=== PATIENT | female | born 1975 | race Caucasian/White ===

== ENCOUNTER 2016-11-07 22:07 | Emergency (ER) | payer MEDICAID ==
[~2016-11-07] VITALS: Ht 160 cm; Wt 140.0 kg
[~2016-11-07 22:07] MED LIST: 1-ME1LIQ PO; COUM5TAB PO; FAMO20TA2 PO; JOBSMIS; LEVE750T8 PO; SIMV20 PO
[2016-11-07 22:14] VITALS: BP 176/109; PULSE 82; RESP 16; TEMP 98.3; O2SAT 97
[2016-11-07] MEDS ORDERED: FERR325T8 PO (22:28)
[2016-11-07] MEDS ORDERED: WARF-23 PO (22:28)
[2016-11-07] MEDS ORDERED: POTA-243 PO (22:28)
[2016-11-07] MEDS ORDERED: SIMV20TA PO (22:28)
[2016-11-07] MEDS ORDERED: KEPP750T PO (22:28)
[2016-11-07] MEDS ORDERED: ACETAMINOPHEN 325 MG TAB PO ONE (22:30)
--- NOTE | 2016-11-07 23:13 | RADRPT ---
EXAM DATE/TIME: 11/07/2016 22:41 [facility] COMPARISON: No previous studies available for comparison. INDICATIONS : Trauma. Pain due to fall. MEDICAL HISTORY : None. SURGICAL HISTORY : None. ENCOUNTER: Initial ACUITY: 1 day PAIN SCORE: 4/10 LOCATION: Left anterior knee FINDINGS: Four view examination of the left knee demonstrates no evidence of fracture or dislocation. Degenerat preet osteoarthritic changes are most prominent in the medial tibiofemoral joint space with loss of hei ght and marginal spurring. Moderate size suprapatellar effusion. CONCLUSION: 1. Degenerative osteoarthritic changes most prominent in the medial tibiofemoral joint space without fracture. 2. Moderate size suprapatellar effusion. Max Mahajan MD on November 07, 2016 at 23:09 Board Certified Radiologist. This report was verified electronically.
--- NOTE | 2016-11-07 23:15 | RADRPT ---
EXAM DATE/TIME: 11/07/2016 22:50 [facility] COMPARISON: No previous studies available for comparison. INDICATIONS : Trauma. Pain due to fall. MEDICAL HISTORY : None. SURGICAL HISTORY : None. ENCOUNTER: Initial ACUITY: 1 day PAIN SCORE: 8/10 LOCATION: Left upper extremity wrist, medial. FINDINGS: Three view examination of the left wrist demonstrates no soft tissue swelling, dislocation, or fractu re. The carpal bones are in normal alignment. Apparent osseous cyst in the ulnar base of the lunate . The joint spaces are maintained. Bony mineralization is normal. CONCLUSION: 1. Osseous cyst in the lunate. 2. No fracture. Max Mahajan MD on November 07, 2016 at 23:12 Board Certified Radiologist. This report was verified electronically.
--- NOTE | 2016-11-07 23:18 | RADRPT ---
EXAM DATE/TIME: 11/07/2016 22:58 [facility] COMPARISON: No previous studies available for comparison. INDICATIONS : Trauma, fall. RADIATION DOSE: 51.25 CTDIvol (mGy) ; Tabletop CT Head MEDICAL HISTORY : Seizures. Hypertension. CVA. SURGICAL HISTORY : Cholecystectomy. Tonsillectomy. ENCOUNTER: Initial ACUITY: 1 day PAIN SCALE: 2/10 LOCATION: cranial TECHNIQUE: Multiple contiguous axial images were obtained of the head. Using automated exposure control and adj ustment of the mA and/or kV according to patient size, radiation dose was kept as low as reasonably a chievable to obtain optimal diagnostic quality images. DICOM format image data is available electro nically for review and comparison. FINDINGS: CEREBRUM: The ventricles are normal for age. Chronic encephalomalacia changes are seen in the left temporal oc cipital watershed area as well as the posterior high right parietal convexity. No evidence of midline shift, mass lesion, hemorrhage or acute infarction. No extra-axial fluid collections are seen. POSTERIOR FOSSA: The cerebellum and brainstem are intact. The 4th ventricle is midline. The cerebellopontine angle i s unremarkable. EXTRACRANIAL: The visualized portion of the orbits is intact. SKULL: The calvaria is intact. No evidence of skull fracture. CONCLUSION: 1. Chronic changes with encephalomalacia in the left temporal occipital watershed area and high right posterior parietal convexity. 2. Nothing acute. No fracture. Max Mahajan MD on November 07, 2016 at 23:14 Board Certified Radiologist. This report was verified electronically.
--- NOTE | 2016-11-07 23:42 | RADRPT ---
EXAM DATE/TIME: 11/07/2016 23:01 [facility] COMPARISON: No previous studies available for comparison. INDICATIONS : Trauma, fall. RADIATION DOSE: 37.81 CTDIvol (mGy) ; Patient body habitus MEDICAL HISTORY : Hypertension. Seizures. CVA. SURGICAL HISTORY : Tonsillectomy. Cholecystectomy. ENCOUNTER: Initial ACUITY: 1 day PAIN SCALE: 6/10 LOCATION: lower back TECHNIQUE: Volumetric scanning of the lumbar spine was performed. Multiplanar reconstructions in the sagittal, coronal and oblique axial planes were performed. Using automated exposure control and adjustment of the mA and/or kV according to patient size, radiation dose was kept as low as reasonably achievable t o obtain optimal diagnostic quality images. DICOM format image data is available electronically for review and comparison. FINDINGS: Sagittal and coronal reconstructions show a mild levoscoliosis of the lumbar spine. However, disc and vertebral body heights are maintained throughout without acute fracture. Spinal canal appears to be widely patent. On the axial source images, there appears to be multiple levels of spina bifida occult a in the upper sacrum and coccygeal regions. Focal area of sclerosis in the right ilium adjacent to t he SI joint is overtly benign and probably represents a small bone island. Detailed axial images as dylan monroy. T12-L1: The thecal sac has a normal diameter. No evidence of disc bulge or protrusion. The neural foramina are patent bilaterally. L1-L2: The thecal sac has a normal diameter. No evidence of disc bulge or protrusion. The neural foramina are patent bilaterally. L2-L3: The thecal sac has a normal diameter. No evidence of disc bulge or protrusion. The neural foramina are patent bilaterally. L3-L4: The thecal sac has a normal diameter. No evidence of disc bulge or protrusion. The neural foramina are patent bilaterally. L4-L5: The thecal sac has a normal diameter. No evidence of disc bulge or protrusion. The neural foramina are patent bilaterally. L5-S1: The thecal sac has a normal diameter. No evidence of disc bulge or protrusion. The neural foramina are patent bilaterally. CONCLUSION: 1. No fracture. 2. Multiple segments of spina bifida occulta right paramidline in the upper sacrum and in multiple se gments of the coccyx. 3. Spinal canal and neural foramina appear to be adequate throughout Max Mahajan MD on November 07, 2016 at 23:35 Board Certified Radiologist. This report was verified electronically.
--- NOTE | 2016-11-07 23:44 | PD ---
HPI Chief Complaint: Fall Time Seen by Provider: 22:20 Travel History International Travel<30 days: No Contact w/Intl Traveler<30days: No Traveled to known affect area: No History of Present Illness HPI This is a 40-year-old female who presents to the emergency department having had a mechanical fall in a movie theater. She did hit her head as well as her left knee and left wrist and she reports she has significant pain involving her lower back and tailbone, constant, severe area and she denies any weakness or numbness. 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 She is on Coumadin. PFSH Past Medical History Cardiac Catheterization: Yes High Cholesterol: Yes Cerebrovascular Accident: Yes Diminished Hearing: No Hypertension: Yes Immunizations Current: Yes Seizures: Yes (EPILEPSY) ?: Not LMP: CURRENTLY ON Past Surgical History Cholecystectomy: Yes Tonsillectomy: Yes Social History Alcohol Use: No Tobacco Use: No Substance Use: No Allergies-Medications (Allergen,Severity, Reaction): Coded Allergies: mupirocin (Unverified Allergy, Severe, Rash, 11/07/16) shellfish derived (Unverified Allergy, Severe, throat swelling, 11/07/16) Sulfa (Sulfonamide Antibiotics) (Unverified Allergy, Intermediate, 11/07/16 ) ciprofloxacin (Unverified Allergy, Intermediate, Hives, 11/07/16) sulfamethoxazole (Unverified Allergy, Intermediate, 11/07/16) ceftriaxone (Unverified Allergy, Mild, HIVES, 11/07/16) prednisone (Unverified Adverse Reaction, Severe, Hives , 11/07/16) Reported Meds & Prescriptions Reported Meds & Active Scripts Active Reported Ferrous Sulfate 325 Mg (65 Mg Iron) Tablet 325 Mg PO DAILY Klor-Con 10 (Potassium Chloride) 10 Meq Tab 10 Meq PO DAILY Warfarin 5 Mg Tab 5 Mg PO DAILY Simvastatin 20 Mg Tab 20 Mg PO HS Keppra (Levetiracetam) 750 Mg Tab 750 Mg PO TID Review of Systems Except as stated in HPI: all other systems reviewed are Neg Physical Exam Narrative GENERAL: Morbidly obese. SKIN: Abrasion over the right knee. HEAD: Atraumatic. Normocephalic. EYES: Pupils equal and round. No injection or drainage. ENT: Moist mucous membranes NECK: No cervical spine tenderness. Full painless range of motion of the neck. CARDIOVASCULAR: Regular rate and rhythm. No murmur appreciated. 2+ left radial pulse with normal capillary refill. RESPIRATORY: Clear to auscultation. Breath sounds equal bilaterally. GASTROINTESTINAL: Abdomen soft, non-tender, nondistended. MUSCULOSKELETAL: Tender to palpation along the lower lumbar spine and tailbone. Severe pain with range of motion the left wrist. No focal tenderness over the snuffbox of the left hand. Pain with flexion of the left knee with no obvious effusion. NEUROLOGICAL: Awake and alert. No obvious cranial nerve deficits. Moving all extremities. PSYCHIATRIC: Appropriate mood and affect; insight and judgment normal. Data Data Last Documented VS Vital Signs Date Time Temp Pulse Resp B/P (MAP) Pulse Ox O2 Delivery O2 Flow Rate FiO2 11/07/16 22:14 98.3 82 16 176/109 (131) 97 Orders Orders Complete Blood Count With Diff (11/07/16 22:25) Basic Metabolic Panel (Bmp) (11/07/16 22:25) Prothrombin Time / Inr (Pt) (11/07/16 22:25) Ct Brain W/O Iv Contrast(Rout) (11/07/16 ) Ct Lumb Spine W/O Contrast (11/07/16 ) ^ Insert Iv (11/07/16 22:25) Wrist, Complete (Zcx9ode) (11/07/16 ) Knee, Complete (4vws) (11/07/16 ) Acetaminophen (Tylenol) (11/07/16 22:30) Labs Laboratory Tests Test 11/07/16 23:25 White Blood Count 8.2 TH/MM3 Red Blood Count 5.13 MIL/MM3 Hemoglobin 12.7 GM/DL Hematocrit 39.9 % Mean Corpuscular Volume 77.8 FL Mean Corpuscular Hemoglobin 24.7 PG Mean Corpuscular Hemoglobin Concent 31.7 % Red Cell Distribution Width 15.7 % Platelet Count 245 TH/MM3 Mean Platelet Volume 10.3 FL Neutrophils (%) (Auto) 73.5 % Lymphocytes (%) (Auto) 15.5 % Monocytes (%) (Auto) 6.4 % Eosinophils (%) (Auto) 3.8 % Basophils (%) (Auto) 0.8 % Neutrophils # (Auto) 6.0 TH/MM3 Lymphocytes # (Auto) 1.3 TH/MM3 Monocytes # (Auto) 0.5 TH/MM3 Eosinophils # (Auto) 0.3 TH/MM3 Basophils # (Auto) 0.1 TH/MM3 CBC Comment DIFF FINAL Differential Comment Prothrombin Time 39.3 SEC Prothromb Time International Ratio 3.4 RATIO Blood Urea Nitrogen 16 MG/DL Creatinine 0.98 MG/DL Random Glucose 94 MG/DL Calcium Level 9.8 MG/DL Sodium Level 140 MEQ/L Potassium Level 3.9 MEQ/L Chloride Level 105 MEQ/L Carbon Dioxide Level 27.8 MEQ/L Anion Gap 7 MEQ/L Estimat Glomerular Filtration Rate 63 ML/MIN MDM Medical Decision Making Medical Screen Exam Complete: Yes Emergency Medical Condition: Yes Interpretation(s) Afebrile, no tachycardia, hypertensive Last 24 hours Impressions Wrist X-Ray 11/07/16 0000 Signed Impressions: Service Date/Time: Monday, November 07, 2016 22:50 - CONCLUSION: 1. Osseous cyst in the lunate. 2. No fracture. Max Mahajan MD Lumbar Spine CT 11/07/16 0000 Signed Impressions: Service Date/Time: Monday, November 07, 2016 23:01 - CONCLUSION: 1. No fracture. 2. Multiple segments of spina bifida occulta right paramidline in the upper sacrum and in multiple segments of the coccyx. 3. Spinal canal and neural foramina appear to be adequate throughout Max Mahajan MD Knee X-Ray 11/07/16 0000 Signed Impressions: Service Date/Time: Monday, November 07, 2016 22:41 - CONCLUSION: 1. Degenerative osteoarthritic changes most prominent in the medial tibiofemoral joint space without fracture. 2. Moderate size suprapatellar effusion. Max Mahajan MD Head CT 11/07/16 0000 Signed Impressions: Service Date/Time: Monday, November 07, 2016 22:58 - CONCLUSION: 1. Chronic changes with encephalomalacia in the left temporal occipital watershed area and high right posterior parietal convexity. 2. Nothing acute. No fracture. Max Mahajan MD Differential Diagnosis Intracranial hemorrhage, patellar fracture, tibial plateau fracture, hemarthrosis, wrist fracture Narrative Course This is a 40-year-old female who has a history of prior stroke and obesity is on Coumadin who presents to the emergency department having had a mechanical fall. She sustained a closed head injury. CT of the head was reassuring. CT of the lumbar spine and x-rays of the left wrist and knee only demonstrate a left knee effusion. INR was 3.4. Patient was advised to rest, ice, Long wrap and elevate the knee. I think she is safe for discharge. Diagnosis Primary Impression: Knee sprain Qualified Codes: S83.92XA - Sprain of unspecified site of left knee, initial encounter Additional Impression: Closed head injury Qualified Codes: S09.90XA - Unspecified injury of head, initial encounter Patient Instructions: General Instructions Additional Instructions: If you develop severe worsening headache, persistent vomiting, numbness, weakness, difficulty walking or difficulty talking return to the emergency department immediately. Rest, ice, Long wrap and elevate your knee to decrease swelling. Med/Other Pt SpecificInfo: Prescription(s) given Scripts Tramadol (Tramadol) 50 Mg Tab 1-2 TAB PO Q6H Y for PAIN, #15 TAB 0 Refills Prov: Inna Gillette MD 11/08/16 Disposition: 01 DISCHARGE HOME Condition: Stable Inna Gillette MD Nov 07, 2016 23:44
[2016-11-07 23:47] LABS: BASOPHIL # 0.1 TH/MM3 (0-0.2); BASOPHIL % 0.8 % (0.0-2.0); EOSINOPHIL # 0.3 TH/MM3 (0-0.4); EOSINOPHIL % 3.8 % (0.0-4.0); HEMATOCRIT 39.9 % (35.0-46.0); HEMO FLAGS DIFF FINAL; LYMPH % 15.5 % (9.0-44.0); LYMPHOCYTE # 1.3 TH/MM3 (1.0-4.8); MEAN CELL VOLUME 77.8 FL (80.0-100.0); MEAN CORPUSCULAR HEMOGLOBIN 24.7 PG (27.0-34.0); MEAN CORPUSCULAR HGB CONC 31.7 % (32.0-36.0); MONO % 6.4 % (0.0-8.0); NEUT % 73.5 % (16.0-70.0); PLATELET COUNT 245 TH/MM3 (150-450); RED BLOOD COUNT 5.13 MIL/MM3 (4.00-5.30); RED CELL DISTRIBUTION WIDTH 15.7 % (11.6-17.2); WHITE BLOOD COUNT 8.2 TH/MM3 (4.0-11.0)
[2016-11-07 23:54] LABS: INTERNATIONAL NORMALIZED RATIO 3.4 RATIO; PROTHROMBIN TIME - PATIENT 39.3 SEC (9.8-11.6)
[2016-11-07 23:57] LABS: BICARBONATE 27.8 MEQ/L (21.0-32.0); POTASSIUM 3.9 MEQ/L (3.5-5.1)
[2016-11-08] MEDS ORDERED: TRAM50TA PO (00:10)
== END 2016-11-08 00:36 | disposition home or self-care (01) ==
LOC: NEPC 22:07
DX: S83.92XA Sprain of unspecified site of left knee, initial encounter (principal); S09.90XA Unspecified injury of head, initial encounter; M25.462 Effusion, left knee; M54.5 Low back pain; M25.532 Pain in left wrist; E66.9 Obesity, unspecified; I10 Essential (primary) hypertension; E78.00 Pure hypercholesterolemia, unspecified; W18.39XA Other fall on same level, initial encounter; Y92.26 Movie house or cinema as the place of occurrence of the external cause; Z79.01 Long term (current) use of anticoagulants; Z86.79 Personal history of other diseases of the circulatory system; Z86.69 Personal history of other diseases of the nervous system and sense organs
CPT/HCPCS: 70450; 72131; 73110; 73564; 80048; 85025; 85610; 99285